=== PATIENT | female | born 1955 | race Caucasian/White ===

== ENCOUNTER 2018-11-13 22:17 | Emergency (ER) | payer BC ==
[2018-11-13] MEDS ORDERED: methylPREDNISolone Sod Succ/PF 125 MG/2 ML VIAL ONE (22:28)
[2018-11-13] MEDS ORDERED: diphenhydrAMINE 12.5 MG/5 ML UDCUP ONE (22:29)
[2018-11-13] MEDS ORDERED: diphenhydrAMINE 50 MG/ML VIAL ONE (22:30)
[2018-11-14 06:26] LABS: #Basophils 0.1 thou/uL (0.0-0.2); #Lymphocytes 1.2 thou/uL (1.20-3.40); #Monocytes 0.9 thou/uL (0.11-0.59); #Neutrophils 12.6 thou/uL (1.40-6.50); %Basophils 0.8 % (0.0-1.0); %Lymphocytes 8.1 % (21.0-51.0); %Monocytes 5.9 % (0.0-10.0); %Neutrophils 85.2 % (42.0-75.0); Hemoglobin 15.6 g/dL (12.0-16.0); Mean Corpuscular HGB CONC 31.5 g/dL (32.0-36.0); Mean Corpuscular Hemoglobin 29.7 pg (27.0-31.0); Mean Corpuscular Volume 94.2 fL (78.0-98.0); Mean Platelet Volume 8.3 fL (7.4-10.4); Platelet Count 283 thou/uL (130-400); RBC Distribution Width 12.7 % (11.5-14.5); Red Blood Cell (RBC) Count 5.26 mill/uL (4.20-5.40); White Blood Cell (WBC) Count 14.7 thou/uL (4.8-10.8)
[2018-11-14 06:32] LABS: CKMB 6.7 ng/mL (0-6.6); Troponin I Less than 0.010 ng/mL (< 0.028)
[2018-11-14 06:36] LABS: BUN (Urea Nitrogen) 16 mg/dL (9.8-20.1); Calc. Creatinine Clearance 0 mL/min (70-130); Carbon Dioxide 23 mmol/L (23-31); Chloride 102 mmol/L (98-107); Estimated GFR-MDRD 72; Glucose 120 mg/dL (80-115); Potassium 4.4 mmol/L (3.5-5.1); Sodium 139 mmol/L (136-145)
[2018-11-14 06:37] LABS: ALT (SGPT) 24 U/L (8-55); AST (SGOT) 23 U/L (5-34); Albumin 4.3 g/dL (3.4-4.8); Alkaline Phosphatase 114 U/L (40-150); Bilirubin, Total 0.6 mg/dL (0.2-1.2); Calcium 10.1 mg/dL (7.8-10.44); Globulin 3.5 g/dL (2.4-3.5); Protein, Total 7.8 g/dL (5.8-8.1)
[2018-11-14 06:39] LABS: Anion Gap 9 mmol/L (10-20)
--- NOTE | 2018-11-14 08:29 | RAD ---
SINGLE VIEW OF THE CHEST: COMPARISON: None. HISTORY: Asthma. FINDINGS: Single view of the chest shows a normal sized cardiomediastinal silhouette. There is no evidence of c onsolidation, mass, or pleural effusion. The bones are unremarkable. IMPRESSION: No evidence of acute cardiopulmonary disease. POS: [facility]
== END 2018-11-13 22:20 | disposition home or self-care (01) ==
LOC: BURERS 22:17
DX: T78.40XA Allergy, unspecified, initial encounter (principal); X58.XXXA Exposure to other specified factors, initial encounter
CPT/HCPCS: 71045; 80053; 82553; 84484; 85025; 96374; 96375; J1200; J2930; Q0163

== ENCOUNTER 2021-08-26 17:30 | Emergency (ER) | payer MEDICARE, OTHER ==
[2021-08-26] MEDS ORDERED: Lidocaine 1% w/Epinephrine 1:100K 20 ML VIAL ONE (17:35)
[2021-08-26] MEDS ORDERED: Bacitracin 1 PK ONE (17:48)
[2021-08-26] MEDS ORDERED: Clindamycin 150 MG CAP ONE (17:57)
== END 2021-08-26 18:01 | disposition home or self-care (01) ==
LOC: BURERS 17:30
DX: S51.812A Laceration without foreign body of left forearm, initial encounter (principal); W55.39XA Other contact with other hoof stock, initial encounter
CPT/HCPCS: 12001

== ENCOUNTER 2022-01-17 15:52 | Emergency (ER) | payer OTHER, MEDICARE | END 2022-01-17 17:23 | disposition home or self-care (01) | LOC: BURERS 15:52 | DX: S80.01XA Contusion of right knee, initial encounter (principal); I10 Essential (primary) hypertension; W54.1XXA Struck by dog, initial encounter; Z79.899 Other long term (current) drug therapy ==

== ENCOUNTER 2025-07-26 12:00 | Emergency (ER) | payer MEDICARE, OTHER ==
[~2025-07-26 12:00] MED LIST: Iopamidol 370 76% 100 ML VIAL ONE
[2025-07-26] MEDS ORDERED: Dexamethasone 10 MG/ML VIAL ONE (12:41)
[2025-07-26 13:37] LABS: #Basophils 0.1 thou/uL (0.0-0.2); #Eosinophils 0.2 thou/uL (0.0-0.7); #Lymphocytes 2.7 thou/uL (1.20-3.40); #Monocytes 0.6 thou/uL (0.11-0.59); #Neutrophils 4.9 thou/uL (1.40-6.50); %Basophils 1.2 % (0.0-1.0); %Eosinophils 1.8 % (0.0-10.0); %Lymphocytes 32.0 % (21.0-51.0); %Monocytes 6.8 % (0.0-10.0); %Neutrophils 58.1 % (42.0-75.0); Hematocrit 46.5 % (36.0-47.0); Hemoglobin 14.9 g/dL (12.0-16.0); Mean Corpuscular Hemoglobin 29.4 pg (27.0-31.0); Mean Corpuscular Volume 91.7 fl (78.0-98.0); Platelet Count 278 10x3/uL (130-400); Red Blood Cell (RBC) Count 5.08 mill/uL (4.20-5.40); White Blood Cell (WBC) Count 8.4 10x3/uL (4.8-10.8)
[2025-07-26 13:53] LABS: ALT (SGPT) 18 U/L (Less than 34); AST (SGOT) 20 U/L (11-34); Albumin 3.4 g/dL (3.1-4.5); Alkaline Phosphatase 82 U/L (40-110); Anion Gap 16 mmol/L (10-20); BUN (Urea Nitrogen) 8 mg/dL (9.8-20.1); Bilirubin, Total 0.6 mg/dL (0.3-1.2); Calc. Creatinine Clearance 0 mL/min (70-130); Calcium 9.0 mg/dL (7.8-10.44); Carbon Dioxide 23 mmol/L (23-31); Chloride 104 mmol/L (98-107); Globulin 3.2 g/dL (2.4-3.5); Glucose 102 mg/dL (80-115); Potassium 4.0 mmol/L (3.5-5.1); Sodium 139 mmol/L (136-145)
== END 2025-07-26 15:37 | disposition home or self-care (01) ==
LOC: BURERS 12:00
DX: R05.3 Chronic cough (principal); J44.9 Chronic obstructive pulmonary disease, unspecified; I10 Essential (primary) hypertension; Z79.899 Other long term (current) drug therapy
CPT/HCPCS: 36415; 71045; 71275; 80053; 85025; J1100; Q9967